=== PATIENT | female | born 1990 | race Caucasian/White ===

== ENCOUNTER → 2019-05-02 | Emergency (ER) | payer SELFPAY ==
[2019-05-02 12:15] LABS: URINE PH (Dip) POC 7.5 (5.0-8.5)
[2019-05-02 12:15] LABS: URINE BLOOD (Dip) POC Negative (NEGATIVE); URINE GLUCOSE (Dip) POC Negative (NEGATIVE); URINE KETONES (Dip) POC Negative (NEGATIVE); URINE LEUKOCYTE EST (Dip) POC Negative (NEGATIVE); URINE NITRITE (Dip) POC Negative (NEGATIVE); URINE TOTAL PROTEIN POC 1+ (NEGATIVE)
[2019-05-02] MEDS: ONDANSETRON (ODT) 4 MG TAB ODT (12:43)
[2019-05-02] MEDS: IBUPROFEN 600 MG TAB PO (12:43)
[2019-05-02] MEDS: HYDROCODONE/APAP (5/325) TAB PO (12:43)
== END | disposition home or self-care (01) ==
LOC: FTE 11:23
DX: R10.2 Pelvic and perineal pain (principal)
CPT/HCPCS: 74176; 76830; 76856; 81003; 81025; 87591; 99284-25